=== PATIENT | female | born 1980 | race Caucasian/White ===

== ENCOUNTER 2017-12-11 13:04 | Emergency (ER) | payer MEDICAID ==
--- NOTE | 2017-12-11 13:28 | EDPHY ---
H & P Stated Complaint: cellulitis r orbit Time Seen by Provider: 12/11/17 13:27 HPI/ROS: CHIEF COMPLAINT: Swelling right eyeHISTORY OF PRESENT ILLNESS: This is a healthy immunocompetent female with c/o redness and swelling around her right eye. There is a bump on the medial right eye--between eyebrow and nose that has been gradually enlarging and is now painful. She had a similar bump about a month ago, but it didn't get this large and it resolved on its own. She denies h/o MRSA, change in vision, fever, sore throat, toothache, earache, cough. She does not feel ill in general. REVIEW OF SYSTEMS: A ten system review of systems was performed and is negative with the exception of the items mentioned in the HPI. 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 No tobacco. General Appearance: Alert. Vital signs reviewed. P 149/84. Afebrile. Visual Acuity: noted from Nurse's notes. Pupils:equal round and reactive to light],EOMI. No pain with eye movements. Lids: OD with mild erythema and edema of upper and lower lids Skin: no proptosis, no vesicles. There is a grape sized swelling just above and medial to medial canthus of the right eye--this swelling is erythematous, tender, fluctuant. Conjunctivae: not injected, no discharge Cornea: Fluorescein exam not performed. ENT, Mouth: Mucous membranes are moist, no oropharyngeal erythema or edema. No significant dental caries or tenderness, no trismus. Neck: No lymphadenopathy, supple. Respiratory: Lungs are clear to auscultation; no wheezes, rales, or rhonchi. Cardiovascular: Regular rate and rhythm; no murmur, rub, or gallop. Gastrointestinal: Abdomen is soft and nontender, no masses or organomegaly, bowel sounds normal. Skin: Warm and dry, no rashes on exposed skin, normal color. Neurological: Alert and oriented. Moving all four extremities easily and equally. Psychiatric: Normal affect. - Personal History LMP (Females 10-55): Now Current Tetanus Diphtheria and Acellular Pertussis (TDAP): Yes - Medical/Surgical History Hx Asthma: No Hx Chronic Respiratory Disease: No Hx Diabetes: No Hx Cardiac Disease: No Hx Renal Disease: No Hx Cirrhosis: No Hx Alcoholism: No Hx HIV/AIDS: No Hx Splenectomy or Spleen Trauma: No Other PMH: denies - Social History Smoking Status: Never smoked Constitutional: Initial Vital Signs Temperature (C) 37 C 12/11/17 13:09 Heart Rate 70 12/11/17 13:09 Respiratory Rate 17 12/11/17 13:09 Blood Pressure 149/84 H 12/11/17 13:09 O2 Sat (%) 98 12/11/17 13:09 O2 Delivery Mode Room Air Allergies/Adverse Reactions: amoxicillin Allergy (Verified 12/13/17 15:23) Sulfa (Sulfonamide Antibiotics) Allergy (Verified 12/13/17 15:23) Home Medications: Medication Instructions Recorded Cephalexin [Keflex] 500 mg PO TID #21 cap 12/11/17 Doxycycline Hyclate [Doxycycline] 100 mg PO BID #13 cap 12/11/17 Hydrocodone/APAP 5/325 [[place] 1 - 2 tab PO Q4 PRN #10 tab 12/11/17 5/325 (RX)] Xanax 12/11/17 Medical Decision Making ED Course/Re-evaluation: Mild sharda-orbital cellulitis OD and abscess adjacent to right eye. No conjunctivitis. Abscess I & D performed in ED by CARIE. Patient started on antibiotics--Keflex and doxycycline. She has been asked to return to ED in two days for re-evaluation by me. We reviewed danger signs that should prompt her to return immediately. She does not appear septic or ill in general. I do not suspect septal cellulitis--no proptosis, no pain with or limitation of EOM, no conjunctival injection. She is neurologically normal and I do not suspect intracranial extension. There is no reason, given history, to worry about foreign body or corneal abrasion. Departure - Departure Disposition: Home, Routine, Self-Care Clinical Impression: Periorbital cellulitis of right eye, Abscess Condition: Good Instructions: Abscess (ED), Periorbital Cellulitis in Adults (ED) Additional Instructions: Take the antibiotics as prescribed. As we discussed, it might take 24-36 hr before you see improvement. If you are worse in any way--general feeling of illness, fever, pain with eye movement, bulging of your eye, change in vision, any new or concerning symptoms--please return to the emergency department for another evaluation. I would like you to return to the emergency department on Friday between 3:00 p.m. At 11:00 p.m. So that we can check your eye again. Adult Pain & Fever Control: We recommend Acetaminophen (Tylenol) and Ibuprofen (Motrin,Advil) for pain and fever control. When fever is high or pain severe, both drugs can be used at the same time, but at different intervals. Please note the time differences. Your dose is: Acetaminophen [650]mg every 4 to 6 hours Ibuprofen [400]mg every [6] hours with food OR Note: do not take Acetaminophen with Hydrocodone (Vicodin, Lortab) or Oycodone (Percocet). These medications also contain Acetaminophen. No more than 3000mg of Acetaminophen should be taken in 24 hours (for an adult). I am prescribing a small quantity of Vicodin to take for more severe pain. Please note that it does contain acetaminophen 325 mg per pill. It is okay for you to take additional Tylenol but be sure that you do not take more than 3000 mg of Tylenol in a 24 hr time period. I recommend that you write down what medications you have taken and the time that you took them. Referrals: Mustapha Wiley MD [Primary Care Provider] - As per Instructions Prescriptions: Cephalexin [Keflex] 500 mg PO TID #21 cap Doxycycline Hyclate [Doxycycline] 100 mg PO BID #13 cap Hydrocodone/APAP 5/325 [[place] 5/325 (RX)] 1 - 2 tab PO Q4 PRN #10 tab PRN Reason: pain
--- NOTE | 2017-12-11 14:35 | EDPHY ---
General - History Smoking Status: Never smoked Time Seen by Provider: 12/11/17 13:27 Narrative: ED Procedure: Abscess drainage. The patient's abscess was located on the medial right eyebrow, superior to the superior canthus. I obtained verbal consent from the patient to drain the abscess who was informed about the possibility of bleeding and pain. Wound was anesthetized with 1% lidocaine without epinephrine, 1 cc. The abscess was incised with [a scalpel] and a 1 mL amount of purulent drainage was expressed. I irrigated the wound with normal saline. The patient tolerated the procedure well. Wound was dressed with a Band-Aid The procedure was performed by myself. (Miller Duran) - Objective Vital Signs: Initial Vital Signs Temperature (C) 37 C 12/11/17 13:09 Heart Rate 70 12/11/17 13:09 Respiratory Rate 17 12/11/17 13:09 Blood Pressure 149/84 H 12/11/17 13:09 O2 Sat (%) 98 12/11/17 13:09 O2 Delivery Mode Room Air Allergies/Adverse Reactions: amoxicillin Allergy (Verified 12/11/17 13:08) Sulfa (Sulfonamide Antibiotics) Allergy (Verified 12/11/17 13:08) Home Medications: Medication Instructions Recorded Cephalexin [Keflex] 500 mg PO TID #21 cap 12/11/17 Doxycycline Hyclate [Doxycycline] 100 mg PO BID #13 cap 12/11/17 Hydrocodone/APAP 5/325 [[place] 1 - 2 tab PO Q4 PRN #10 tab 12/11/17 5/325 (RX)] Xanax 12/11/17 Departure - Departure Disposition: Home, Routine, Self-Care Clinical Impression: Periorbital cellulitis of right eye, Abscess Condition: Good Instructions: Abscess (ED), Periorbital Cellulitis in Adults (ED) Additional Instructions: Take the antibiotics as prescribed. As we discussed, it might take 24-36 hr before you see improvement. If you are worse in any way--general feeling of illness, fever, pain with eye movement, bulging of your eye, change in vision, any new or concerning symptoms--please return to the emergency department for another evaluation. I would like you to return to the emergency department on Friday between 3:00 p.m. At 11:00 p.m. So that we can check your eye again. Adult Pain & Fever Control: We recommend Acetaminophen (Tylenol) and Ibuprofen (Motrin,Advil) for pain and fever control. When fever is high or pain severe, both drugs can be used at the same time, but at different intervals. Please note the time differences. Your dose is: Acetaminophen [650]mg every 4 to 6 hours Ibuprofen [400]mg every [6] hours with food OR Note: do not take Acetaminophen with Hydrocodone (Vicodin, Lortab) or Oycodone (Percocet). These medications also contain Acetaminophen. No more than 3000mg of Acetaminophen should be taken in 24 hours (for an adult). I am prescribing a small quantity of Vicodin to take for more severe pain. Please note that it does contain acetaminophen 325 mg per pill. It is okay for you to take additional Tylenol but be sure that you do not take more than 3000 mg of Tylenol in a 24 hr time period. I recommend that you write down what medications you have taken and the time that you took them. Referrals: Mustapha Wiley MD [Primary Care Provider] - As per Instructions Prescriptions: Cephalexin [Keflex] 500 mg PO TID #21 cap Doxycycline Hyclate [Doxycycline] 100 mg PO BID #13 cap Hydrocodone/APAP 5/325 [[place] 5/325 (RX)] 1 - 2 tab PO Q4 PRN #10 tab PRN Reason: pain
[2017-12-11 15:06] VITALS: BP 156/96
== END 2017-12-11 15:07 | disposition home or self-care (01) ==
PROC: 0W923ZZ Drainage of Face, Percutaneous Approach (ICD-10-PCS; principal; 2017-12-11)
DX: L03.213 Periorbital cellulitis (principal); Z88.0 Allergy status to penicillin; Z88.2 Allergy status to sulfonamides

== ENCOUNTER 2017-12-13 15:20 | Emergency (ER) | payer MEDICAID ==
--- NOTE | 2017-12-13 16:07 | EDPHY ---
H & P Stated Complaint: recheck r orbit cellulitis Time Seen by Provider: 12/13/17 16:09 HPI/ROS: CHIEF COMPLAINT: Recheck of periorbital abscess HISTORY OF PRESENT ILLNESS: The patient is a 37 y/o female returning for a recheck of a right periorbital abscess and cellulitis. I evaluated her on , two days ago, for this. She had an I&D at that time and was placed on Keflex and Doxycycline, which she has been taking as directed. Her pain and swelling has improved since then. REVIEW OF SYSTEMS: A ten system review of systems was performed and is negative with the exception of the items mentioned in the HPI. Past medical history: Periorbital cellulitis and abscess Past surgical history: Noncontributory Family history: Noncontributory Social history: Lives in [place]. Employed. General Appearance: Alert. Vital signs reviewed. Eyes: No OD periorbital erythema or swelling. Slightly tender 1/2 cm by 1/2 cm swelling above and medial to medial canthus OD. No drainage or fuctuance. Pupils equal and round, no conjunctival injection, no discharge. ENT, Mouth: Mucous membranes are moist, no oropharyngeal erythema or edema. Neck: No lymphadenopathy, supple. Respiratory: Lungs are clear to auscultation; no wheezes, rales, or rhonchi. Cardiovascular: Regular rate and rhythm; no murmur, rub, or gallop. Gastrointestinal: Abdomen is soft and nontender, no masses or organomegaly. Skin: Warm and dry, no rashes on exposed skin, normal color. Neurological: Alert and oriented. Moving all four extremities easily and equally. Psychiatric: Normal affect. - Personal History LMP (Females 10-55): 1-7 Days Ago Current Tetanus Diphtheria and Acellular Pertussis (TDAP): Yes - Medical/Surgical History Hx Asthma: No Hx Chronic Respiratory Disease: No Hx Diabetes: No Hx Cardiac Disease: No Hx Renal Disease: No Hx Cirrhosis: No Hx Alcoholism: No Hx HIV/AIDS: No Hx Splenectomy or Spleen Trauma: No Other PMH: denies - Social History Smoking Status: Never smoked Constitutional: Initial Vital Signs Temperature (C) 36.9 C 12/13/17 15:23 Heart Rate 61 12/13/17 15:23 Respiratory Rate 16 12/13/17 15:23 Blood Pressure 141/86 H 12/13/17 15:23 O2 Sat (%) 98 12/13/17 15:23 O2 Delivery Mode Room Air Allergies/Adverse Reactions: amoxicillin Allergy (Verified 12/13/17 15:23) Sulfa (Sulfonamide Antibiotics) Allergy (Verified 12/13/17 15:23) Home Medications: Medication Instructions Recorded Cephalexin [Keflex] 500 mg PO TID #21 cap 12/11/17 Doxycycline Hyclate [Doxycycline] 100 mg PO BID #13 cap 12/11/17 Hydrocodone/APAP 5/325 [[place] 1 - 2 tab PO Q4 PRN #10 tab 12/11/17 5/325 (RX)] Xanax 12/11/17 Medical Decision Making ED Course/Re-evaluation: I saw this patient for her first visit and for this recheck. Her abscess is markedly improved and there is no periorbital cellulitis. No fever. I feel that she is recovering well. She will FU with PCP. Departure - Departure Disposition: Home, Routine, Self-Care Clinical Impression: Abscess re-check Condition: Good Instructions: Abscess (ED) Additional Instructions: Stay on your antibiotics as previously prescribed. Follow up with your primary care provider this week for reevaluation. Return to the ED for severe pain, dramatic increase in redness or swelling, fever, vision changes, or other worsening of condition. Referrals: Mustapha Wiley MD [Primary Care Provider] - As per Instructions Report Scribed for: Renata Camejo Report Scribed by: Aubrie Barth Date of Report: 12/13/17 Time of Report: 16:12 Physician Review and Approval Statement: 12/13/17 16:07 Portions of this note were transcribed by the medical administrator. I, Dr. Renata Camejo, personally performed the history, physical exam, and medical decision- making; and confirmed the accuracy of the information in the transcribed note.
[2017-12-13 16:42] VITALS: BP 132/93
== END 2017-12-13 16:42 | disposition home or self-care (01) ==
DX: L02.01 Cutaneous abscess of face (principal)